=== PATIENT | female | born 1970 | race Caucasian/White ===

== ENCOUNTER 2019-10-16 13:00 | Inpatient (IN) | payer BC, MEDICAID ==
[~2019-10-16] VITALS: Ht 172.7 cm; Wt 77.2 kg
[2019-10-16 14:09] LABS: Basophils # (auto) 0 uL; Basophils % (auto) 0.8 % (0.0-2.0); Eosinophils # (auto) 0.2 uL; Eosinophils % (auto) 3.5 % (0.0-7.0); Hematocrit 42.7 % (36.0-46.0); Hemoglobin 15.2 g/dL (12.2-16.2); Lymphocytes # (auto) 2.1 uL; Mean Corpuscular Hemoglobin 33.5 pg (28.0-32.0); Mean Corpuscular Hgb Conc. 35.5 g/dL (32.0-36.0); Mean Corpuscular Volume 94.3 fL (80.0-100.0); Monocytes # (auto) 0.4 uL; Monocytes % (auto) 6.5 % (0.0-12.0); Neutrophils # (auto) 3.2 uL; Neutrophils % (auto) 54.2 % (37.0-80.0); Nucleated Red Blood Cells % 0.1 %; Platelet Count (auto) 352 10^3/uL (140-450); Red Blood Cells 4.53 10^6/uL (4.0-5.20); White Blood Cell 5.9 10^3/uL (4.4-10.8)
[2019-10-16 14:27] LABS: INR 0.99 (0.9-1.15); Partial Thromboplastin Time 27.9 sec (23.64-32.05)
[2019-10-16 14:54] LABS: Albumin 3.2 g/dL (3.4-5.0); Calcium 8.3 mg/dL (8.5-10.1); Potassium 3.6 mmol/L (3.5-5.1)
[2019-10-16 14:59] LABS: Bilirubin, Total 0.2 mg/dL (0.2-1.0); Total Protein 7.2 g/dL (6.4-8.2)
[2019-10-16] MEDS ORDERED: ONDANSETRON HCL 4 MG/2 ML VIAL IV ONE (15:15)
[2019-10-16] MEDS ORDERED: NITROGLYCERIN 0.4 MG SL TAB SL PRN (18:15)
[2019-10-16] MEDS ORDERED: ASPirin 81 mg TAB PO ONE (18:15)
[2019-10-16] MEDS ORDERED: TEMAZEPAM 15 MG CAP PO PRN (18:15)
[2019-10-16] MEDS ORDERED: LACTULOSE 20Gm/30ML SOLN PO PRN (18:15)
[2019-10-16] MEDS ORDERED: ACETAMINOPHEN 500 MG TAB PO PRN (18:15)
[2019-10-16] MEDS ORDERED: CLOPIDOGREL 300 MG TAB PO ONE (18:15)
[2019-10-16] MEDS ORDERED: ENOXAPARIN SOD 80 MG/0.8ML SYRINGE SC SCH (18:15)
[2019-10-16] MEDS ORDERED: traMADol HCL 50 MG TAB PO PRN (18:15)
[2019-10-16] MEDS ORDERED: HEPARIN DRIP/D5W 100UNITS/ML 250 ML IV SCH (18:25)
[2019-10-16] MEDS ORDERED: HEPARIN SODIUM (PORCINE) 5000 UNITS/ML 1ML VIAL IV ONE (18:30)
[2019-10-16] MEDS ORDERED: MORPHINE SULF INJ 2 MG/ML SYRINGE 1ML IV PRN (18:45)
[2019-10-16] MEDS: SODIUM CHLORIDE 0.9% 1,000 ML IV SCH (18:54)
[2019-10-16] MEDS: METOPROLOL TARTRATE 25 MG TAB PO SCH (22:11)
[2019-10-16] MEDS: ATORVASTATIN 20 MG TAB PO SCH (22:11)
[2019-10-16] MEDS: FAMOTIDINE 20 MG TAB PO SCH (22:11)
[2019-10-17 02:37] LABS: INR 1.02 (0.9-1.15); Partial Thromboplastin Time 37.4 sec (23.64-32.05)
[2019-10-17 05:29] LABS: Urine Bacteria FEW /hpf (None Seen); Urine Blood 1+ /uL (Negative); Urine Mucus FEW (None Seen); Urine Specific Gravity 1.024 (1.001-1.035); Urine WBC 1 /hpf (0 - 5)
[2019-10-17 05:59] LABS: Alcohol, Urine < 3.0 mg/dL (0-5); Amphetamine Screen, Urine NEGATIVE (NEGATIVE); Barbiturate Scree,Urine NEGATIVE (NEGATIVE); Benzodiazephine Screen, Urine NEGATIVE (NEGATIVE); Cannabinoid Screen, Urine POSITIVE (NEGATIVE); Cocaine Screen, Urine NEGATIVE (NEGATIVE); Opiate Scree,Urine NEGATIVE (NEGATIVE); Phencyclidine Screen, Urine NEGATIVE (NEGATIVE)
[2019-10-17] MEDS: MORPHINE SULF INJ 2 MG/ML SYRINGE 1ML IV PRN ×2 (06:33→07:07)
[2019-10-17] MEDS: PROMETHAZINE HCL 25 MG/ML 1ML IV PRN ×2 (06:33→07:07)
[2019-10-17] MEDS: SODIUM CHLORIDE 0.9% 1,000 ML IV SCH ×2 (07:33→11:00)
[2019-10-17] MEDS ORDERED: LIDOCAINE 2%HCL (LOCAL ANESTH.) INJ 20ML MDV ONE (08:40)
[2019-10-17] MEDS ORDERED: IOHEXOL 350 MG/ML 100ML IJ ONE (08:40)
[2019-10-17] MEDS ORDERED: ANGIOMAX 250 MG VIAL IV ONE (08:48)
[2019-10-17] MEDS ORDERED: fentaNYL CITRATE 100 MCG/2 ML VL ONE (08:49)
[2019-10-17] MEDS ORDERED: SODIUM CHL 0.9% 50 ML ONE (08:49)
[2019-10-17] MEDS ORDERED: MIDAZOLAM HCL 1MG/1ML-2 ML VIAL ONE (08:49)
[2019-10-17] MEDS ORDERED: NICARDIPINE 25 MG/10 ML VIAL IV ONE (09:48)
[2019-10-17] MEDS ORDERED: ATROPINE SULF 1 MG/10ml SYR ONE (09:52)
[2019-10-17] MEDS ORDERED: PHENYLEPHRINE HCL 10 MG/ML VL ONE (09:52)
[2019-10-17] MEDS ORDERED: IODIXANOL 320MG/ML 100ML BTL IV ONE (09:53)
[2019-10-17] MEDS: NITROGLYCERIN 0.2MG/HR TOPICAL PATCH TD SCH (10:00)
[2019-10-17] MEDS: CLOPIDOGREL BISULFATE 75 MG TAB PO SCH (10:00)
[2019-10-17] MEDS: ASPirin 81 mg TAB PO SCH (10:00)
[2019-10-17] MEDS ORDERED: CLOPIDOGREL 300 MG TAB ONE (10:01)
[2019-10-17] MEDS ORDERED: EPTIFIBATIDE DRIP(0.75MG/ML) 100 ML IV ONE (10:02)
[2019-10-17] MEDS ORDERED: EPTIFIBATIDE INJ (2MG/ML) 10ML VIAL IV ONE (10:02)
[2019-10-17] MEDS ORDERED: ASPirin 325 MG TAB ONE (10:02)
[2019-10-17] MEDS: EPTIFIBATIDE DRIP(0.75MG/ML) 100 ML IV SCH ×2 (11:00→17:56)
[2019-10-17] MEDS ORDERED: hydrALAZINE HCL 20 MG/ML VL IV PRN (11:15)
[2019-10-17] MEDS ORDERED: hydrALAZINE HCL 20 MG/ML VL IV ONE (11:15)
--- NOTE | 2019-10-17 12:06 | NUR ---
RECEIVED REPORT FROM STEPHANIE CHANDLER PT S/P [facility] WITH [facility]. Addendum: 10/17/19 at 1210 by Shayla Alberto RN RECEIVED REPORT FROM STEPHANIE MURGUIA IN [facility].
--- NOTE | 2019-10-17 12:45 | NUR ---
Received pt from label tacker via bed, pt is awake and alert, noted post op dressing on right groin clean dry and intact, pt with ongoing integrilin drip at 12mls/hr to discontinue at 10pm per Alena in [facility]. Will continue to monitor.
[2019-10-17 13:00] VITALS: BP_SYST 140; BP_SYST 156; BP_DIAS 90; BP_DIAS 92
[2019-10-17] MEDS: FAMOTIDINE 20 MG TAB PO SCH ×2 (13:39→22:29)
[2019-10-17] MEDS: METOPROLOL TARTRATE 25 MG TAB PO SCH ×2 (13:40→22:00)
[2019-10-17 14:15] LABS: INR 1.06 (0.9-1.15); Partial Thromboplastin Time 38.7 sec (23.64-32.05)
[2019-10-17 17:00] VITALS: BP 136/74
[2019-10-17 17:50] LABS: Urine Bacteria NONE SEEN /hpf (None Seen); Urine Blood 1+ /uL (Negative); Urine Specific Gravity 1.016 (1.001-1.035); Urine WBC 1 /hpf (0 - 5)
--- NOTE | 2019-10-17 19:31 | NUR ---
Opening Shift Note Received report from day shift nurseShayla. Assumed care of patient. Patient is awake, alert and orientated x 4. Family is at bedside. Right groin incision is clean, dry and intact. No S/S of distress/SOB or pain. Bed is in lowest position with side rails up x 2. Bed brakes are locked and call light is with in reach. HOB is 30 degrees. Instructed on POC and to call for assist PRN, will continue to monitor for changes Q1hr and PRN.
[2019-10-17 20:00] VITALS: BP 137/86
[2019-10-17 22:00] VITALS: BP 136/84
[2019-10-17] MEDS: ATORVASTATIN 20 MG TAB PO SCH (22:29)
[2019-10-17] MEDS: CIPROFLOXACIN HCL 500 MG TAB PO SCH (22:29)
[2019-10-17] MEDS: LOSARTAN POTASSIUM 50 MG TAB PO SCH (22:29)
[2019-10-18] MEDS: SODIUM CHLORIDE 0.9% 1,000 ML IV SCH (01:18)
[2019-10-18 05:00] VITALS: BP 142/65
--- NOTE | 2019-10-18 07:19 | NUR ---
Closing notes endorsed care to day shift nurse, Jo.
--- NOTE | 2019-10-18 07:30 | NUR ---
OPENING NOTE Assumed care of patient from NOC RNRalf. Patient awake and alert no S/S of distress/SOB or pain. Instructed on POC and to call for assistance PRN, verbalized understanding. Dressing to right groin clean/dry and intact. Bed in lowest, locked position with side rails up x2 and call light within reach. Will continue to monitor for changes Q1hr and PRN.
[2019-10-18 07:42] LABS: Basophils # (auto) 0 uL; Basophils % (auto) 0.4 % (0.0-2.0); Eosinophils # (auto) 0.1 uL; Eosinophils % (auto) 1.7 % (0.0-7.0); Hematocrit 40.4 % (36.0-46.0); Hemoglobin 13.8 g/dL (12.2-16.2); Lymphocytes # (auto) 2.2 uL; Lymphocytes % (auto) 27.1 % (10.0-50.0); Mean Corpuscular Hemoglobin 32.4 pg (28.0-32.0); Mean Corpuscular Hgb Conc. 34.2 g/dL (32.0-36.0); Mean Corpuscular Volume 94.9 fL (80.0-100.0); Monocytes # (auto) 0.7 uL; Neutrophils # (auto) 5.2 uL; Neutrophils % (auto) 62.8 % (37.0-80.0); Platelet Count (auto) 311 10^3/uL (140-450); Red Blood Cells 4.26 10^6/uL (4.0-5.20); White Blood Cell 8.3 10^3/uL (4.4-10.8)
[2019-10-18 08:02] LABS: BUN/Creatinine Ratio 10.6; Calcium 8.1 mg/dL (8.5-10.1); Potassium 3.6 mmol/L (3.5-5.1)
[2019-10-18 08:06] LABS: Bilirubin, Total 0.6 mg/dL (0.2-1.0); Total Protein 6.9 g/dL (6.4-8.2)
--- NOTE | 2019-10-18 08:32 | NUR ---
CRITICAL LAB Left message with Dr. Bryan's exchange regarding critical Troponin level, 6.16. Patient asymptomatic. Awaiting call back.
[2019-10-18 09:00] VITALS: BP 140/83
--- NOTE | 2019-10-18 09:20 | NUR ---
MD AT BEDSIDE Dr. Haro at patient's bedside, informed MD of critical Troponin level. States normal finding s/p heart cath, no new orders at this time.
[2019-10-18] MEDS: METOPROLOL TARTRATE 25 MG TAB PO SCH (09:49)
[2019-10-18] MEDS: LOSARTAN POTASSIUM 50 MG TAB PO SCH (09:49)
[2019-10-18] MEDS: ASPirin 81 mg TAB PO SCH (09:49)
[2019-10-18] MEDS: CLOPIDOGREL BISULFATE 75 MG TAB PO SCH (09:50)
[2019-10-18] MEDS: NITROGLYCERIN 0.2MG/HR TOPICAL PATCH TD SCH (09:50)
[2019-10-18] MEDS: FAMOTIDINE 20 MG TAB PO SCH (09:50)
[2019-10-18] MEDS: CIPROFLOXACIN HCL 500 MG TAB PO SCH (09:50)
--- NOTE | 2019-10-18 10:17 | NUR ---
AWARE Dr. Robert Bryan at patient's bedside, aware of Troponin level. States patient is okay to be discharged.
--- NOTE | 2019-10-18 12:40 | NUR ---
DISCHARGE Discharge instructions given as ordered. Encouraged to follow up with PMD and Cardiology, Dr. Bryan, as instructed. All questions and concerns addressed, patient verbalized understanding. Medication reconciliation form completed and copy given to patient. IV removed with catheter intact and pressure dressing applied. Telemetry unit returned to ICU. Patient ambulated to vehicle with all personal belongings, accompanied by family member. No distress noted at time of departure.
== END 2019-10-18 12:40 | disposition home or self-care (01) | DRG 174 ==
LOC: EDSEX 13:00 → ER 13:00 → EDBD 13:00 → TELE 13:01 → TELE-CENTR 10-17 13:25
PROVIDERS: ADMIT Internal Medicine; ATTEND Internal Medicine
PROC: B2111ZZ Fluoroscopy of Multiple Coronary Arteries using Low Osmolar Contrast (ICD-10-PCS; principal; 2019-10-17)
PROC: 027034Z Dilation of Coronary Artery, One Artery with Drug-eluting Intraluminal Device, Percutaneous Approach (ICD-10-PCS; 2019-10-17)
PROC: B2151ZZ Fluoroscopy of Left Heart using Low Osmolar Contrast (ICD-10-PCS; 2019-10-17)
PROC: 4A023N7 Measurement of Cardiac Sampling and Pressure, Left Heart, Percutaneous Approach (ICD-10-PCS; 2019-10-17)
PROC: B41F1ZZ Fluoroscopy of Right Lower Extremity Arteries using Low Osmolar Contrast (ICD-10-PCS; 2019-10-17)
PROC: 3E073PZ Introduction of Platelet Inhibitor into Coronary Artery, Percutaneous Approach (ICD-10-PCS; 2019-10-17)
DX: I21.4 Non-ST elevation (NSTEMI) myocardial infarction (principal); N17.0 Acute kidney failure with tubular necrosis; E78.5 Hyperlipidemia, unspecified; M06.9 Rheumatoid arthritis, unspecified; N18.9 Chronic kidney disease, unspecified; I12.9 Hypertensive chronic kidney disease with stage 1 through stage 4 chronic kidney disease, or unspecified chronic kidney disease; Z79.82 Long term (current) use of aspirin; Z82.49 Family history of ischemic heart disease and other diseases of the circulatory system; Z90.710 Acquired absence of both cervix and uterus; Z90.721 Acquired absence of ovaries, unilateral; Z95.5 Presence of coronary angioplasty implant and graft; Z83.3 Family history of diabetes mellitus; Z79.899 Other long term (current) drug therapy
CPT/HCPCS: 36415; 71045; 75710; 80053; 80061; 80307; 81001; 82550; 83735; 83880; 84443; 84484; 85025; 85379; 85610; 85652; 85730; 86141; 86850; 86900; 86901; 87086; 92928; 93005; 93458; 96361; 96365; 96375; G0378; J2250; J2405; Q9967